=== PATIENT | female | born 1955 | race Caucasian/White ===

== ENCOUNTER 2019-09-27 05:16 | Observation (INO) | payer MEDICARE ==
[2019-09-27 07:18] LABS: ABS Basophils 0.1 10^3/ul (0-0.2); ABS Eosinophils 0.1 10^3/ul (0-0.6); ABS Lymphocytes 1.6 10^3/ul (1.0-4.8); ABS Monocytes 0.4 10^3/ul (0-0.8); ABS Neutrophils 1.8 10^3/ul (1.5-7.7); Eosinophil % 2.7 %; Hematocrit 40 % (35-47); Hemoglobin 13.8 g/dL (12.0-16.0); Lymphocyte % 40.9 %; Mean Corpuscular HGB Conc 35 g/dL (31-36); Mean Corpuscular Hemoglobin 33 pg (27-31); Mean Corpuscular Volume 94 fL (80-97); Mean Platelet Volume 8.1 fL (7.4-10.4); Nucleated Red Blood Cells % 0.1; Platelet Count 202 10^3/uL (150-450); Red Blood Count 4.22 10^6 /uL (3.70-4.87); Red Cell Distribution Width 13 % (10-15); White Blood Count 3.9 10^3/uL (3.5-10.8)
[2019-09-27 07:23] LABS: INR 0.93 (0.82-1.09)
--- NOTE | 2019-09-27 07:31 | ED ---
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 Patient is present with her . The chest pain radiates to the area under the left breast into the left upper back. The most recent episode of chest pain began at 04:00 on and lasted for 45 minutes. Patient describes the pain as sharp and pulsating. Patient denies chest pain on exertion, shortness of breath, headache , or fever. Patient has a PMHx of HLD, osteopenia, and asthma for which she uses an inhaler on exertion. Patient denies any aggravating or alleviating factors. Patient denies a FMHx of cardiac disease, but admits a FMHx of HLD. Patient had urine and blood work completed recently that showed HLD. Patient has had a cardiac stress test in the past. Patient bikes for exercise. Patient denies tobacco use. - History of Current Complaint Chief Complaint: EDChestPainROMI Time Seen by Provider: 09/27/19 06:54 Hx Obtained From: Patient Onset/Duration: Started Days Ago - 3 days ago, Atraumatic, Resolved Timing: Intermittent, Lasting Minutes - 45 minutes Initial Severity: Severe Current Severity: Moderate Pain Intensity: 8 Pain Scale Used: 0-10 Numeric Chest Pain Location: Diffuse Chest Pain Radiates: Yes Chest Pain Radiates To:: Back - Left upper back, Other - Under the left breast Character: Other: - Sharp and pulsating Aggravating Factor(s): Nothing Alleviating Factor(s): Nothing Associated Signs and Symptoms: Positive: Chest Pain - Diffuse; not on exertion, Back Pain - Left upper radiates from chest, Other: - Positive pain under the left breast that radiates from chest. Negative: Headaches, Shortness of Breath , Fever - Allergy/Home Medications Allergies/Adverse Reactions: Allergies Allergy/AdvReac Type Severity Reaction Status Date / Time bee venom protein (honey bee) Allergy Anaphylatic Verified 09/27/19 06:03 Shock benzonatate Allergy Unknown Verified 09/27/19 06:03 [From Tony Kruger] Reaction Details Home Medications: Home Medications Calcium Phos/Vit D3/Mag Oxide [Posture-D Caplet] 1 each PO DAILY 09/27/19 [ History Confirmed 09/27/19] Multivitamins/Minerals TAB* [Theragran/minerals TAB*] 1 tab PO DAILY 09/27/19 [ History Confirmed 09/27/19] PMH/Surg Hx/FS Hx/Imm Hx Previously Healthy: Yes Endocrine/Hematology History: Denies: Hx Diabetes, Hx Thyroid Disease Cardiovascular History: Reports: Hx Hypercholesterolemia, Hx Hypertension Denies: Hx Pacemaker/ICD Respiratory History: Reports: Hx Asthma Denies: Hx Chronic Obstructive Pulmonary Disease (COPD) GI History: Denies: Hx Ulcer History: Denies: Hx Renal Disease Musculoskeletal History: Reports: Other Musculoskeletal History - Osteopenia Sensory History: Denies: Hx Legally Blind, Hx Deafness, Hx Hearing Aid Opthamlomology History: Denies: Hx Legally Blind EENT History: Denies: Hx Deafness Psychiatric History: Denies: Hx Panic Disorder - Cancer History Hx Chemotherapy: No Hx Radiation Therapy: No - Surgical History Surgical History: Yes Surgery Procedure, Year, and Place: KNEE LT 2009 FOR TORN MENISCUS, TONSILECTOMY , CARPAL TUNNEL SURGERY ON BOTH WRISTS. EPISIOTOMY - Immunization History Immunizations Up to Date: Yes Infectious Disease History: No Infectious Disease History: Denies: Hx Hepatitis, Hx Human Immunodeficiency Virus (HIV), Traveled Outside the [place] in Last 30 Days - Family History Known Family History: Positive: Hypertension, Other - HLD Negative: Cardiac Disease, Diabetes Family History: No FHx breast cancer - Social History Occupation: Works From/At Home Lives: With Family Alcohol Use: Occasionally Hx Substance Use: No Substance Use Type: Reports: None Hx Tobacco Use: No Smoking Status (MU): Never Smoked Tobacco Review of Systems Negative: Fever Positive: Chest Pain - Diffuse, not on exertion Negative: Shortness Of Breath Positive: Myalgia - Left upper back and under the left breast that radiates from chest Negative: Headache All Other Systems Reviewed And Are Negative: Yes Physical Exam - Summary Physical Exam Summary: Constitutional: Well-developed, Well-nourished, Alert. (-) Distressed Skin: Warm, Dry HENT: Normocephalic; Atraumatic Eyes: Conjunctiva normal Neck: Musculoskeletal ROM normal neck. (-) JVD, (-) Stridor, (-) Nuchal rigidity Cardio: Rhythm regular, rate normal, Heart sounds normal; Intact distal pulses; Radial pulses are 2+ and symmetric. (-) Murmur Pulmonary/Chest wall: Effort normal. (-) Respiratory distress, (-) Wheezes, (-) Rales Abd: Soft, (-) tenderness, (-) Distension, (-) Guarding, (-) Rebound Musculoskeletal: (-) Edema Lymph: (-) Cervical adenopathy Neuro: Alert, Oriented x3 Psych: Mood and affect Normal Triage Information Reviewed: Yes Vital Signs On Initial Exam: Initial Vitals Temp Pulse Resp BP Pulse Ox 98.2 F 59 15 119/45 99 09/27/19 05:26 09/27/19 05:26 09/27/19 05:26 09/27/19 05:26 09/27/19 05:26 Vital Signs Reviewed: Yes Procedures - Sedation Patient Received Moderate/Deep Sedation with Procedure: No Diagnostics - Vital Signs Vital Signs Temp Pulse Resp BP Pulse Ox 09/27/19 06:45 70 14 142/88 97 09/27/19 06:15 61 11 110/65 95 09/27/19 06:00 54 16 98 09/27/19 05:45 57 11 119/78 99 09/27/19 05:44 12 09/27/19 05:26 98.2 F 59 15 119/45 99 - Laboratory Lab Results: Lab Results 09/27/19 09/27/19 Range/Units 07:09 07:09 WBC 3.9 (3.5-10.8) 10^3/uL RBC 4.22 (3.70-4.87) 10^6 /uL Hgb 13.8 (12.0-16.0) g/dL Hct 40 (35-47) % MCV 94 (80-97) fL MCH 33 H (27-31) pg MCHC 35 (31-36) g/dL RDW 13 (10-15) % Plt Count 202 (150-450) 10^3/uL MPV 8.1 (7.4-10.4) fL Neut % (Auto) 45.5 % Lymph % (Auto) 40.9 % [place] % (Auto) 9.6 % Eos % (Auto) 2.7 % Baso % (Auto) 1.3 % Absolute Neuts (auto) 1.8 (1.5-7.7) 10^3/ul Absolute Lymphs (auto) 1.6 (1.0-4.8) 10^3/ul Absolute Monos (auto) 0.4 (0-0.8) 10^3/ul Absolute Eos (auto) 0.1 (0-0.6) 10^3/ul Absolute Basos (auto) 0.1 (0-0.2) 10^3/ul Absolute Nucleated RBC 0.0 10^3/ul Nucleated RBC % 0.1 INR (Anticoag Therapy) 0.93 (0.82-1.09) Result Diagrams: 09/27/19 07:09 09/27/19 07:09 Lab Statement: Any lab studies that have been ordered have been reviewed, and results considered in the medical decision making process. - Radiology Chest X-ray Radiology Interpretation Completed By: Radiologist Summary of Radiographic Findings: Chest X-ray IMPRESSION: NO ACTIVE CARDIOPULMONARY DISEASE. R1NF. Reviewed by ED physician. - EKG 05:22 Cardiac Rate: Bradycardia - 57 BPM EKG Rhythm: Sinus Bradycardia ST Segment: Normal Ectopy: None EKG Comparison: No Significant Change - From 13 Summary of EKG Findings: EKG at 05:22 reveals 57 BPM with sinus bradycardia with incomplete RBBB, T wave invertions in leads III, V1, and V2. Compared with 03/02/13, no significant change. Reviewed and interpreted by ED physician. 09:57 Cardiac Rate: Bradycardia - 56 BPM EKG Rhythm: Sinus Bradycardia ST Segment: Normal Ectopy: None Summary of EKG Findings: EKG at 09:57 reveals 56 BPM with T wave inversions in lead III, V2, V3, and V4. New T wave inversions in V3 and V4 compared with EKG at 05:22. Reviewed and interpreted by ED physician. Re-Evaluation - Re-Evaluation First Eval Change: Improved - resting NAD, first troponin negative. Plan for second troponin, outpatient stress test. Second Eval Re-Evaluation Time: 10:25 Change: Unchanged Comment: At 10:25, after d/w patient regarding TWI, she is agreeable to stay. Chest Pain Course/Dx - Course Course Of Treatment: 64-year-old female with a history of hyperlipidemia presents with chest pain. Chest Pain DDX: The patient is well appearing, with stable vitals. Given the patient's clinical presentation, highest on differential is ACS vs atypical chest pain. History c/w possible reflux. Denies exertional CP, hx HICKMAN. Will check trop x2, EKG x2 given risk factors. Although less likely, differential also includes the following: --Pneumothorax: Equal breath sounds, story inconsistent since gradual onset of symptoms. CXR shows no evidence of pneumothorax. Unlikely. --Cardiac tamponade: The history and physical are not concerning for tamponade. No Pulsus Paradoxus, no tachypnea. Unlikely. --Mediastinitis or esophageal rupture: The history is not consistent , as the patient has had no recent history of significant wretching, instrumentation, or mediastinal surgeries. Unlikely. --Aortic dissection: The patient does not describe the classical tearing chest pain radiating into the back, and the CXR does not show mediastinal widening or other signs of aortic dissection. Unlikely. --PE: Vitals wnl (not hypoxic, tachycardic or tachypneic) . Heart score 4, will admit for stress given EKG changes. - Diagnoses Provider Diagnoses: Chest pain - Provider Notifications Discussed Care Of Patient With: Chi Gonzalez - At 08:50, Dr. Chi Gonzalez agrees with outpatient stress test. At 10:15, Dr. Evie Han agrees to admit the patient with a diagnosis of chest pain. Time Discussed With Above Provider: 08:50 Instructed by Provider To: Admit As Inpatient Discharge ED - Sign-Out/Discharge Documenting (check all that apply): Patient Departure - Admit - Discharge Plan Condition: Stable Disposition: ADMITTED TO [facility] Referrals: Connor Chadwick DO [Primary Care Provider] - - Billing Disposition and Condition Condition: STABLE Disposition: Admitted to [facility] - Attestation Statements Document Initiated by Rolfibe: Yes Documenting Scribe: Kath Razo Provider For Whom Ary is Documenting (Include Credential): Tien Jacobs MD Scribe Attestation: Kath Pitt, scribed for Tien Jacobs MD on 09/27/19 at 1040. Scribe Documentation Reviewed: Yes Provider Attestation: The documentation as recorded by the Kath monteiro accurately reflects the service I personally performed and the decisions made by me, Tien Jacobs MD Status of Scribe Document: Viewed
[2019-09-27 07:43] LABS: Albumin 4.1 g/dL (3.2-5.2); Albumin/Globulin Ratio 1.9 (1-3); BUN/Creatinine Ratio 19.5 (8-20); Calcium 9.9 mg/dL (8.6-10.3); EGFR African American 84.7 (>60); Globulin 2.2 g/dL (2-4); Potassium 3.9 mmol/L (3.5-5.0); Total Bilirubin 0.5 mg/dL (0.2-1.0); Total Protein 6.3 g/dL (6.4-8.9)
[2019-09-27] MEDS ORDERED: Aspirin TAB* 325 MG PO ONE (10:40)
[2019-09-27] MEDS ORDERED: Aspirin 81 mg CHEW TAB* 81 MG TAB.CHEW PO ONE (10:44)
[2019-09-27] MEDS ORDERED: Acetaminophen TAB* 325 MG PO PRN (12:16)
[2019-09-27] MEDS ORDERED: Senna TAB 8.6 mg* TAB PO PRN (12:16)
[2019-09-27] MEDS ORDERED: Al Hydrox/Mg Hydrox/Simet LIQ* 30 ML UDC PO PRN (12:16)
[2019-09-27] MEDS ORDERED: Ibuprofen TAB* 800 MG PO PRN (12:20)
[2019-09-27] MEDS ORDERED: Albuterol HFA INHALER* 8 gm MDI INH PRN (12:20)
--- NOTE | 2019-09-27 14:00 | HP ---
CC: Dr. Chadwick * ADMISSION HISTORY AND PHYSICAL: DATE OF ADMISSION: 09/27/19 PRIMARY CARE PROVIDER: Dr. Chadwick ATTENDING PHYSICIAN WHILE IN THE HOSPITAL: Dr. Evie Marin * (dictated by KATIE Padilla) CHIEF COMPLAINT: Chest pain. HISTORY OF PRESENT ILLNESS: Kylee Giraldo is a 64-year-old white female with past medical history significant for osteopenia, hyperlipidemia, psoriasis, and exercise-induced asthma, who presents to the emergency department today due to central sharp chest pain. This is the third morning in row the patient has been experiencing this. She awakened today and the prior 2 mornings around 3 to 4 in the morning with sharp central chest pain which radiates to the right side of her chest pain. Today it is different in that it radiated near her right armpit. The prior two episodes lasted for 30 minutes and today lasted for 60 minutes then resolved on its own. By the time of my evaluation, chest pain has subsided. She admits to intermittent lightheadedness for the last several months. She additionally has been having intermittent headaches. She denies shortness of breath, abdominal pain, nausea , or vomiting associated with this onset of the chest pain. She does feel there is somewhat of a pressure near her epigastric region when this pain is on , which is now resolved as well. The patient exercises multiple times per week including vigorous walking and a lot of yard work and denies angina with exertion. The patient denies fever, chills, joint pain. The patient does mention that she has been doing intensive yard work for the last week including raking leaves and lifting approximately 90 pound pieces of wood with her . ED COURSE: When the patient arrived to the emergency department, her vital signs were temperature of 98.2, heart rate of 59 beats per minute, respiratory rate 15, oxygen saturation 99% on room air, blood pressure 119/45. She had a troponin that was negative and a repeat EKG which exhibited small changes in T waves and therefore the hospitalists were asked to evaluate the patient for admission. The patient was given 324 mg of aspirin in the emergency department. PAST MEDICAL HISTORY: 1. Osteopenia. 2. Hyperlipidemia. 3. Squamous cell skin carcinoma status post resection. 4. Psoriasis. 5. Exercise-induced asthma. PAST SURGICAL HISTORY: 1. Bilateral knee meniscus repairs. 2. Bilateral carpal tunnel release surgery. 3. Uterine ablation. 4. Squamous cell resection. HOME MEDICATIONS: 1. Albuterol HFA inhaler 1 puff inhaled q.4 hours p.r.n. shortness of breath/ wheezing. 2. Calcium phosphate/vitamin D3/mag oxide tablet 1 tab p.o. daily. 3. Multivitamin 1 tab p.o. daily. 4. Ibuprofen 800 mg p.o. 6 hours p.r.n. pain. 5. Dexamethasone 40 mcg inhaled daily. ALLERGIES: 1. Anaphylaxis to BEE VENOM, unknown recreation. 2. TESSALON PERLES. FAMILY HISTORY: Father at age 66 due to complications related to COPD. Mother at age 66 due to failure to thrive. SOCIAL HISTORY: The patient lives with her . They have 1 daughter. She previously smoked for less than 1 year over 40 years ago less than 1 pack per day. She drinks 2 to 3 glasses of wine per week and denies illicit drugs. 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 The patient would like her , Rajiv Giraldo, to make medical decisions for her should she be unable to for herself. His phone number is [phone]. REVIEW OF SYSTEMS: An 11-point review of systems was completed, all pertinent positives are above in the HPI. PHYSICAL EXAMINATION GENERAL: Well-developed, well-nourished white female, who appears stated age, lying upright in hospital bed, appearing comfortable and in no acute distress. HEENT: Head: Normocephalic, atraumatic. Eyes: PERRLA. Sclerae anicteric. ENT: Mucous membranes are moist. NECK: Supple without JVD. LUNGS: Clear to auscultation throughout. Chest expansion is symmetrical respirations. CARDIO: Regular rate and rhythm without murmurs, rubs, or gallops appreciated. Tenderness to palpation at the third to fourth right intercostal space at sternal border as well as third to fourth intercostal space in the mid axillary line. ABDOMEN: Normoactive bowel sounds x4 quadrants. No hepatosplenomegaly. Abdomen is soft, nontender, nondistended. No epigastric pain. EXTREMITIES: No cyanosis, clubbing, or edema. No calf tenderness. NEUROLOGIC: The patient is alert and oriented x3. No focal deficits. Able to move all extremities. No tremors. DIAGNOSTIC STUDIES/LAB DATA: White blood cell 3.9, hemoglobin 13.8, hematocrit 40, platelet count 202. INR 0.93. Sodium 141, potassium 3.9, chloride 108, carbon dioxide 30, anion gap 3, BUN 16, creatinine 0.82, glucose 95. Unremarkable LFTs. Troponin 0.00 x2. The patient had lipid panel on 09/23/19, triglycerides 123, cholesterol 278, LDL 177, HDL 76.7. Chest x-ray, no cardiopulmonary disease. EKG: At 05:52 a.m. on 09/27/19 with T wave inversions in V1 and V2 which is consistent with prior EKG from 2013. No ST elevations or depressions. EKG taken at 09:59 a.m. on 09/27/19 with small T wave changes with sine wave T wave morphology in V3, V4 and some T wave flattening in V5, V6 which is unchanged in next EKG at 12:24. ASSESSMENT AND PLAN: Kylee Giraldo is a 64-year-old white female with past medical history significant for osteopenia, exercise-induced asthma, and hyperlipidemia who presented to emergency department due to chest pain. The patient will be admitted OBV for: 1. Chest pain. The patient has small EKG changes to T-wave morphology in lead V3, V4 which I believe is due to lead placement. I did ask the ED staff who confirmed the leads were changed between these 2 readings; however, she does have a DEMETRIO score of 2 due to her both episodes of chest pain and her age. It is worth admitting her in observation for overnight telemetry and a stress test in the morning. I have ordered an exercise nuclear stress test. The patient already had a lipid panel done in outpatient setting on 09/23/19 and I have listed the results as above. The patient will likely benefit from a statin which can be discussed further with her primary care provider upon discharge. The patient received aspirin in the emergency department. I believe her chest pain is likely musculoskeletal, however, ruling out ACS given her DEMETRIO score is reasonable. I have ordered a hemoglobin A1c and a TSH. Chest x-ray has been ordered. The patient will have a third troponin and EKG done in 3 hours since her last measurement and we will follow this. 2. Exercise-induced asthma. We will continue the patient's home inhalers. I do not believe this to be contributing to her presentation as her symptoms have been stable since the summertime. 3. FEN: The patient's electrolytes within normal limits. No IV fluids necessary. The patient will have a regular unrestricted diet and will be n.p.o. after midnight for her stress test tomorrow. 4. DVT prophylaxis: The patient has a DVT risk score of 2. I will order 40 mg subcu Lovenox daily. 5. Code status: The patient is full code. TIME SPENT: I spent approximately 45 minutes on this admission, approximately half this time was spent at bedside evaluating the patient and discussing plan of care. This case has been reviewed with my attending, Dr. Evie Marin, and she agrees with this plan of care. KATIE PADILLA [id number]/CPS #: [id number] MTDMis
[2019-09-27] MEDS ORDERED: Enoxaparin(*) 40 MG/0.4 ML SYR SUBCUT SCH (21:00)
[2019-09-28 06:03] LABS: ABS Basophils 0.1 10^3/ul (0-0.2); ABS Eosinophils 0.1 10^3/ul (0-0.6); ABS Lymphocytes 2.1 10^3/ul (1.0-4.8); ABS Monocytes 0.4 10^3/ul (0-0.8); ABS Neutrophils 1.7 10^3/ul (1.5-7.7); Eosinophil % 3.4 %; Hematocrit 40 % (35-47); Hemoglobin 13.9 g/dL (12.0-16.0); Mean Corpuscular HGB Conc 35 g/dL (31-36); Mean Corpuscular Hemoglobin 33 pg (27-31); Mean Corpuscular Volume 94 fL (80-97); Mean Platelet Volume 8.5 fL (7.4-10.4); Nucleated Red Blood Cells % 0.1; Platelet Count 202 10^3/uL (150-450); Red Blood Count 4.22 10^6 /uL (3.70-4.87); Red Cell Distribution Width 13 % (10-15); White Blood Count 4.4 10^3/uL (3.5-10.8)
[2019-09-28 06:22] LABS: BUN/Creatinine Ratio 20.2 (8-20); Calcium 9.6 mg/dL (8.6-10.3); EGFR African American 82.3 (>60); Potassium 3.9 mmol/L (3.5-5.0)
[2019-09-28 06:51] LABS: TSH (Thyroid Stimulating Horm) 1.48 mcIU/mL (0.34-5.60)
[2019-09-28 08:50] VITALS: BP 118/66
[2019-09-28] MEDS ORDERED: Multivitamins/Minerals TAB PO SCH (09:00)
[2019-09-28] MEDS ORDERED: Calcium/Vitamin D TAB 250/125* TAB PO SCH (09:00)
--- NOTE | 2019-09-28 16:17 | DS ---
CC: Dr. Connor Chadwick * DATE OF ADMISSION: 09/27/2019. DATE OF DISCHARGE: 09/28/2019. PRIMARY CARE PHYSICIAN: Dr. Connor Chadwick. ATTENDING PHYSICIAN: Dr. Evie Marin * (dictated by Dante Orellana NP). PRIMARY DIAGNOSIS: 1. Chest pain, musculoskeletal. SECONDARY DIAGNOSES: 1. Hyperlipidemia. 2. Asthma. STUDIES WHILE IN THE HOSPITAL: 1. Chest x-ray on 09/27/2019, reads as: No active cardiopulmonary disease. 2. EKG on 09/27/2019 shows sinus bradycardia with a rate of 57, inverted T- waves in V1 and V2, no ST elevation or depression. 3. EKG on 09/27/2019 shows sinus bradycardia with a rate of 56, T-wave flattening in V5 and V6. 4. EKG on 09/27/2019 shows sinus bradycardia with a rate of 53, again noted is some T-wave flattening in V5. 5. EKG on 09/28/2019 shows a normal sinus rhythm with a rate of 69, no T-wave abnormalities. 6. Nuclear cardiac stress test on 09/28/2019, reads as: No definite fixed or reversible perfusion defects. Assessment is low risk. HISTORY OF PRESENT ILLNESS AND HOSPITAL COURSE: Ms. Joe Giraldo is a 64- year- old female with a past medical history of osteopenia, hyperlipidemia, psoriasis and asthma who presented to the emergency room on 09/27/2019 with complaints of chest pain. Please see the history and physical by KATIE Kelly for a complete summary of the events leading up to this hospitalization. In short, the patient reported waking with chest pain for the last two days. This was in the center of her chest, radiating to her right chest and right shoulder. In the emergency room, she had EKG's as noted above. She had a troponin which was noted to be 0.00. She did have a DEMETRIO score of 2 and so for that reason, she was admitted by the Hospitalist Service. The patient had an eventful night with no further episodes of chest pain. She has a nuclear stress test this morning with results noted above. It was noted to be low risks. Additionally, she had two more troponins which were flat at 0.00. Vital signs have been stable. She has had no arrhythmias on telemetry. Upon speaking with the patient, she does admit that she recently did some work outside with her where she was lifting very heavy 4 x 4's. She also notes that the pain only occurs when she lies on her right side and resolves when she wakes up and lies on her back. She additionally noted that during the stress test, when she had to have her arms above her head, this was very painful in her right shoulder. Her chest pain in nonreproducible to palpation, though is reproducible with movement of her right shoulder. For that reason and her negative cardiac work-up, it does appear as though the patient's pain is musculoskeletal in nature, likely sustained some sort of injury due to some recent heavy lifting. The patient has no further complaints this morning. PHYSICAL EXAMINATION: On exam, she is alert and oriented times four. Her heart has a regular rate and rhythm without murmurs, rubs, or gallops. Lungs are clear to auscultation without rhonchi, wheezes or rubs. There is no edema. Physical exam is otherwise benign. Ms. Joe Giraldo is stable for discharge today. Most recent vital signs are as follows: Temperature 97.8, heart rate 62, respiratory rate 12, oxygen saturation 100 percent on room air, blood pressure 118/66. DISCHARGE MEDICATIONS: Continued medications: 1. Albuterol MDI one puff q.4 hours prn shortness of breath or wheezing. 2. QVAR 40 mcg inhalation daily. 3. Posture-D one tab p.o. daily. 4. Ibuprofen 800 mg p.o. q.6 hours prn pain. 5. Multivitamin one tab p.o. daily. DISCHARGE PLAN: Ms. Joe Giraldo will be discharged home. I have not made any medication changes. I have advised the patient that she can use ibuprofen for pain management over the next few days, though I suspect that her pain will resolve shortly as this does not appear to be any significant injury. She can continue her other usual medications as noted above. She should follow-up with her primary care provider in the next four to seven days. ACTIVITY: As tolerated. DIET: Regular as tolerated. She has been advised to return to the emergency room or nearest hospital for any worsening of symptoms, shortness of breath, lightheadedness, dizziness, chest discomfort, high fever, chills, night sweats loss of consciousness, or any other worrisome signs or symptoms. CONDITION ON DISCHARGE: Stable. DISPOSITION: Home. This is a summarized report of a complex medical history and hospital stay. For further details, please see the entire medical record. TIME SPENT: Approximately 40 minutes were spent on this discharge. DANTE ORELLANA, CRUSHER [employer] MICA [id number]/CPS #: [id number]
== END 2019-09-28 11:54 | disposition home or self-care (01) ==
LOC: ED 05:16 → MEDTELE 12:16
PROVIDERS: ADMIT Internal Medicine; ATTEND Internal Medicine
DX: R07.89 Other chest pain (principal); E78.5 Hyperlipidemia, unspecified; J45.909 Unspecified asthma, uncomplicated; Z79.899 Other long term (current) drug therapy; R94.31 Abnormal electrocardiogram [ECG] [EKG]
CPT/HCPCS: 36415; 71046; 78452; 80048; 80053; 83036; 83605; 84443; 84484; 85025; 85610; 93005; 93017; 99284; A9270-GY; A9502; G0378